=== PATIENT | female | born 1935 | race Caucasian/White ===

== ENCOUNTER 2017-05-02 09:23 | Day surgery (SDC) | payer OTHER, MEDICARE ==
[2017-04-28 12:36] VITALS: BMI 24.3
[2017-05-02] MEDS ORDERED: PROPOFOL 20 ML ONE (10:37)
[2017-05-02] MEDS ORDERED: LIDOCAINE HCL/PF 2% SDV 5ML VIAL ONE (10:37)
[2017-05-02 11:19] VITALS: PULSE 67
[2017-05-02 11:37] VITALS: BP 143/74; TEMP 98
== END 2017-05-02 11:40 | disposition home or self-care (01) ==
LOC: FASU-ENDO 09:23
PROVIDERS: ATTEND Internal Medicine Gastroenterology
PROC: 0DJD8ZZ Inspection of Lower Intestinal Tract, Via Natural or Artificial Opening Endoscopic (ICD-10-PCS; principal; 2017-05-02 10:43)
DX: Z85.038 Personal history of other malignant neoplasm of large intestine (principal); Z98.0 Intestinal bypass and anastomosis status; K57.30 Diverticulosis of large intestine without perforation or abscess without bleeding